=== PATIENT | male | born 1990 | race Caucasian/White ===

== ENCOUNTER 2017-01-15 13:33 | Emergency (ER) | payer SELFPAY ==
[~2017-01-15] VITALS: Ht 170.2 cm; Wt 60.0 kg
[2017-01-15 13:34] VITALS: BP 122/78; PULSE 54; RESP 20; TEMP 97.5; O2SAT 100
--- NOTE | 2017-01-15 14:04 | PD ---
Physical Exam Time Seen by Provider: 14:02 Narrative 26 y/o male here with L 3rd finger tissue avulsion sustained at work today. Vital signs reviewed. Seen at triage desk. Awaiting bed placement. Data Data Last Documented VS Vital Signs Date Time Temp Pulse Resp B/P Pulse Ox O2 Delivery O2 Flow Rate FiO2 01/15/17 13:34 97.5 54 20 122/78 100 Room Air MDM Medical Record Reviewed: Yes Supervised Visit with LEXUS: Jose Rossi Jan 15, 2017 14:04
--- NOTE | 2017-01-15 15:16 | PD ---
HPI . left middle finger Chief Complaint: Laceration/Skin Injury Time Seen by Provider: 15:16 Travel History International Travel<30 days: No Contact w/Intl Traveler<30days: No Traveled to known affect area: No History of Present Illness HPI 26 yr old male here with avulsion to his left middle finger. Patient was cutting some onions at work and accidentally cut his finger. He is up to date on his tetanus. He tells me he does not want any meds. PFSH Past Medical History Diminished Hearing: No Tetanus Vaccination: < 5 Years Influenza Vaccination: No Social History Alcohol Use: No Tobacco Use: No Substance Use: No Allergies-Medications (Allergen,Severity, Reaction): Coded Allergies: No Known Allergies (Unverified , 01/15/17) Review of Systems General / Constitutional: No: Fever Eyes: No: Visual changes HENT: No: Headaches Cardiovascular: No: Chest Pain or Discomfort Respiratory: No: Shortness of Breath Gastrointestinal: No: Abdominal Pain Genitourinary: No: Dysuria Musculoskeletal: No: Pain Skin: Positive Other (left middle finger avulsion ), No Rash Neurologic: No: Weakness Psychiatric: No: Depression Endocrine: No: Polydipsia Hematologic/Lymphatic: No: Easy Bruising Physical Exam Narrative GENERAL: AAO x 3, no acute distress, Well-nourished, well-developed patient. SKIN: Warm and dry. No visible rashes or bruising. small 1 cm avulsion to the left middle finger on the corner sparing the distal fat pad and tuft, very superficial, 3 mm depth, no evidence of bone or vessel injury. HEAD: Normocephalic and atraumatic. EYES: No scleral icterus. No injection or drainage. ENT: No nasal drainage noted. Mucous membranes pink. Airway patent. NECK: Supple, trachea midline. No JVD. CARDIOVASCULAR: Regular rate and rhythm without murmurs, gallops, or rubs. RESPIRATORY: Breath sounds equal bilaterally. No accessory muscle use. No rhonchi or rales. GASTROINTESTINAL:visual inspection normal EXTREMITIES: No cyanosis or edema. capillary refill normal to the left hand, all digits move normally BACK: No obvious deformity. NEURO: CN II-12 intact, nascar racer strength normal b/l, UE and LE 5/5, no focal deficits PSYCH: AAO x 3, normal affect. Data Data Last Documented VS Vital Signs Date Time Temp Pulse Resp B/P Pulse Ox O2 Delivery O2 Flow Rate FiO2 01/15/17 13:34 97.5 54 20 122/78 100 Room Air Orders Gelfoam 100 Top (Gelfoam 100 Top) (01/15/17 15:45) Wound Care (01/15/17 15:36) MDM Medical Decision Making Medical Screen Exam Complete: Yes Emergency Medical Condition: Yes Medical Record Reviewed: Yes Differential Diagnosis finger avulsion, finger laceration, less likely finger fracture Narrative Course 26 yr old male here with small superficial avulsion to the corner of his left middle finger. There is no evidence of bony injury or vessel injury. Area was cleaned with saline and betadine. Finger tourniquet was used to stop bleeding and hemostasis was achieved using wound seal powder. Hemostasis was accomplished with powder, but I wanted to use some gel foam to reinforce. It was ordered, however there was some difficulty finding in the emergency department. Patient expressed that he needed to be back home by 5 PM and desired to leave the emergency room. Since there was no more bleeding I discharged him. I advised him to return to the ED if the bleeding resumes. We discussed the signs of infection and when to return. Patient verbalized understanding of instructions, questions were answered, and thanked me for their care. I advised them if their condition worsens, please return to the nearest emergency room for further care. Diagnosis Primary Impression: Finger avulsion Qualified Code: S61.209A - Finger avulsion, initial encounter Patient Instructions: General Instructions Additional Instructions: Use Tylenol or Motrin as needed for pain. Keep area clean and dry. Use gauze as we discussed and change 1-2 times a day. Watch for signs of infection: fever, redness, swelling, warmth, pus or drainage , red streaks around the cut, and increased pain from the area. Please return to emergency department if your symptoms return or worsen. Follow up with your primary care provider. Med/Other Pt SpecificInfo: No Change to Meds Disposition: 01 DISCHARGE HOME Condition: Stable Kiya Redding Jan 15, 2017 15:16
[2017-01-15] MEDS ORDERED: GELFOAM SIZE 100 TOPICAL ONE (15:45)
== END 2017-01-15 16:21 | disposition home or self-care (01) ==
LOC: NEPK 13:33
DX: S61.203A Unspecified open wound of left middle finger without damage to nail, initial encounter (principal); W26.0XXA Contact with knife, initial encounter; Y93.G1 Activity, food preparation and clean up; Y99.0 Civilian activity done for income or pay
CPT/HCPCS: 12001